=== PATIENT | male | born 1980 | race Caucasian/White ===

== ENCOUNTER 2018-07-04 13:19 | Emergency (ER) | payer SELFPAY ==
[~2018-07-04] VITALS: Ht 185.4 cm; Wt 95.0 kg
[2018-07-04 13:24] VITALS: BP 131/78
[2018-07-04] MEDS ORDERED: METH-360 PO (15:09)
[2018-07-04] MEDS ORDERED: NAPR-56 PO (15:09)
[2018-07-04] MEDS ORDERED: ketorolac tromethamine 15mg/ml inj. IM ONE (15:10)
== END 2018-07-04 15:20 | disposition home or self-care (01) ==
LOC: ER 13:19
DX: I80.8 Phlebitis and thrombophlebitis of other sites (principal); M54.42 Lumbago with sciatica, left side; Z98.890 Other specified postprocedural states; Z79.899 Other long term (current) drug therapy
CPT/HCPCS: 93971; 96372; 99284; J1885

== ENCOUNTER 2019-11-02 21:25 | Emergency (ER) | payer SELFPAY ==
[~2019-11-02] VITALS: Ht 185.4 cm; Wt 93.1 kg
[~2019-11-02 21:25] MED LIST: METH-360 PO
[2019-11-02 21:33] VITALS: BP 113/89
[2019-11-02] MEDS ORDERED: triamcinolone acetonide 40mg/ml inj IM ONE (22:05)
[2019-11-02] MEDS ORDERED: PRED10TA23 PO (22:06)
[2019-11-02] MEDS ORDERED: HYDR28CR14 TOP (22:06)
== END 2019-11-02 22:23 | disposition home or self-care (01) ==
LOC: ER 21:26
DX: L23.7 Allergic contact dermatitis due to plants, except food (principal); R21 Rash and other nonspecific skin eruption; Z98.890 Other specified postprocedural states; Z79.899 Other long term (current) drug therapy
CPT/HCPCS: 96372; 99283; J3301

== ENCOUNTER 2020-06-02 10:06 | Emergency (ER) | payer MEDICAID ==
[~2020-06-02] VITALS: Ht 185.4 cm; Wt 100.0 kg
[~2020-06-02 10:06] MED LIST changes: +HYDR28CR14 TOP
[2020-06-02 10:22] VITALS: BP 132/68
[2020-06-02] MEDS ORDERED: CEPH500C5 PO (13:24)
== END 2020-06-02 13:37 | disposition home or self-care (01) ==
LOC: ER 10:06
DX: L08.9 Local infection of the skin and subcutaneous tissue, unspecified (principal); R59.1 Generalized enlarged lymph nodes; F17.200 Nicotine dependence, unspecified, uncomplicated; F12.90 Cannabis use, unspecified, uncomplicated; Z98.890 Other specified postprocedural states; Z72.89 Other problems related to lifestyle; Z79.2 Long term (current) use of antibiotics; Z79.899 Other long term (current) drug therapy
CPT/HCPCS: 99283

== ENCOUNTER 2022-03-06 09:58 | Emergency (ER) | payer MEDICAID ==
[~2022-03-06] VITALS: Ht 185.4 cm; Wt 86.4 kg
[2022-03-06 10:01] VITALS: BP 112/70
[2022-03-06] MEDS ORDERED: TETanus/Pertussis (Acell)/Diphther VAC/PF (Tdap-Adult) 0.5ml syringe IMVAC ONE (11:00)
[2022-03-06] MEDS ORDERED: LIDOcaine 1% 30ml preserv. free vial IJ ONE (11:00)
[2022-03-06] MEDS ORDERED: morphine 4 MG/ML inj SYRINge IM ONE (12:05)
[2022-03-06] MEDS ORDERED: CEPH500C2 PO ×3 (12:42→13:07)
== END 2022-03-06 13:01 | disposition home or self-care (01) ==
LOC: ER 09:59
DX: S69.92XA Unspecified injury of left wrist, hand and finger(s), initial encounter (principal); F12.90 Cannabis use, unspecified, uncomplicated; X58.XXXA Exposure to other specified factors, initial encounter; Y93.89 Activity, other specified; Y92.89 Other specified places as the place of occurrence of the external cause; Y99.8 Other external cause status
CPT/HCPCS: 73130; 90471; 90715; 96372; 99284; J2270; A6258

== ENCOUNTER 2024-01-04 19:53 | Emergency (ER) | payer MEDICAID ==
[~2024-01-04] VITALS: Ht 185.4 cm; Wt 89.1 kg
[2024-01-04] MEDS: TETanus/Pertussis (Acell)/Diphther VAC/PF (Tdap-Adult) 0.5ml syringe IMVAC ONE (20:22)
[2024-01-04] MEDS: LIDOcaine 1% 30ml preserv. free vial IJ STA (20:43)
[2024-01-04] MEDS ORDERED: CEPH-585 PO (21:44)
[2024-01-04 21:55] VITALS: BP 156/77; PULSE 65; RESP 15; TEMP 98.4; O2SAT 99
== END 2024-01-04 21:56 | disposition home or self-care (01) ==
LOC: ER 19:53
DX: S91.114A Laceration without foreign body of right lesser toe(s) without damage to nail, initial encounter (principal); Z79.899 Other long term (current) drug therapy; Z98.890 Other specified postprocedural states; Z72.89 Other problems related to lifestyle; F12.90 Cannabis use, unspecified, uncomplicated; X58.XXXA Exposure to other specified factors, initial encounter; Y93.89 Activity, other specified; Y92.89 Other specified places as the place of occurrence of the external cause; Y99.8 Other external cause status
CPT/HCPCS: 12001; 99283; J7030; L4360; A6258; A6449

== ENCOUNTER 2024-01-20 15:47 | Emergency (ER) | payer MEDICAID ==
[~2024-01-20] VITALS: Ht 185.4 cm; Wt 87.0 kg
[2024-01-20] MEDS ORDERED: HYDR-3965 PO (16:18)
[2024-01-20] MEDS ORDERED: AMOX-580 PO (16:18)
[2024-01-20 16:37] VITALS: BP 132/80; PULSE 84; RESP 18; TEMP 98.5; O2SAT 99
== END 2024-01-20 16:40 | disposition home or self-care (01) ==
LOC: VAS 15:47
DX: S02.5XXA Fracture of tooth (traumatic), initial encounter for closed fracture (principal); S91.114A Laceration without foreign body of right lesser toe(s) without damage to nail, initial encounter; F12.90 Cannabis use, unspecified, uncomplicated; Z79.2 Long term (current) use of antibiotics; Z79.899 Other long term (current) drug therapy; X58.XXXA Exposure to other specified factors, initial encounter; Y93.89 Activity, other specified; Y99.8 Other external cause status; Y92.89 Other specified places as the place of occurrence of the external cause
CPT/HCPCS: 99283; A6449

== ENCOUNTER 2024-04-11 08:08 | Emergency (ER) | payer MEDICAID ==
[~2024-04-11] VITALS: Ht 185.4 cm; Wt 88.6 kg
[2024-04-11 08:10] VITALS: TEMP 98.7
[2024-04-11] MEDS: amox tr/potassium clavulanate 875/125mg TAB PO ONE (08:39)
[2024-04-11] MEDS: ketorolac trometh 15mg/ml vial 15 MG/ML ML IM ONE (08:39)
[2024-04-11 08:50] VITALS: BP 134/95; PULSE 83; RESP 16; O2SAT 38
== END 2024-04-11 08:52 | disposition home or self-care (01) ==
LOC: ER 08:08
DX: S03.2XXA Dislocation of tooth, initial encounter (principal); K02.9 Dental caries, unspecified; F12.90 Cannabis use, unspecified, uncomplicated; Z79.899 Other long term (current) drug therapy; Z98.890 Other specified postprocedural states; Z72.89 Other problems related to lifestyle; X58.XXXA Exposure to other specified factors, initial encounter; Y93.89 Activity, other specified; Y92.89 Other specified places as the place of occurrence of the external cause; Y99.8 Other external cause status
CPT/HCPCS: 96372; 99283; J1885

== ENCOUNTER 2024-06-10 10:53 | Day surgery (SDC) | payer MEDICAID ==
[~2024-06-10] VITALS: Ht 185.4 cm; Wt 88.6 kg
[2024-06-10] VITALS (7 sets, daily range): BP systolic 76–131; BP diastolic 36–73; PULSE 46–65; RESP 11–20; O2SAT 99–100
[2024-06-10] MEDS ORDERED: propofol inj 20 ML IV ONE (12:30)
[2024-06-10] MEDS ORDERED: fentaNYL/PF 50MCG/1 ML 2ML syringe ONE (12:30)
[2024-06-10] MEDS ORDERED: midazolam 1 mg/ML 2ml injection ONE (12:30)
== END 2024-06-10 13:45 | disposition home or self-care (01) ==
LOC: GI LAB 10:53
PROVIDERS: ATTEND Internal Medicine Gastroenterology
DX: K92.1 Melena (principal); K62.1 Rectal polyp; D12.4 Benign neoplasm of descending colon; Z87.891 Personal history of nicotine dependence
CPT/HCPCS: 45380; 45385; J2250; J2704; J3010; J7030; Z7512; C1889

== ENCOUNTER 2025-04-26 12:31 | Emergency (ER) | payer MEDICAID ==
[~2025-04-26] VITALS: Ht 185.4 cm; Wt 88.0 kg
[2025-04-26 12:32] VITALS: BP 141/92; PULSE 80; RESP 16; TEMP 98.2; O2SAT 99
[2025-04-26] MEDS ORDERED: AMOX-580 PO (13:04)
--- NOTE | 2025-04-26 13:06 | Physician Documentation ---
HPI ~ General Chief Complaint: Tooth Problem Stated Complaint: TOOTH PAIN Time Seen by MD: 12:42 OK to notify your PCP?: Yes Primary Medical Doctor: [facility] Source: patient Mode of Arrival: POV Exam Limitations: no limitations History of Present Illness HPI Comment 44-year-old male who is here with left lower dental pain which he states started two days ago. He had an appointment to get this tooth pulled but he states he cancel that as he had to work and at that time the pain was not like it is now. He is requesting a prescription for antibiotics. Pain kept him awake last night. No fever, chills, sore throat, ear pain, cp. Medication Reconciliation Allergies: Coded Allergies: No Known Allergies (Unverified , 04/26/25) Past Medical History Past Medical History: No Pertinent History, Vascular Disease Past Surgical History: orthopedic surgeries Alcohol Use: Occasionally Drug Use: marijuana Occupation: employed Review of Systems All Other Systems at this time: Reviewed and Negative Physical Exam Vital Signs: Temperature: 98.2, Source: Oral, Heart Rate: 80, Respiratory Rate: 16, BP: 141/92, Pulse Oximetry: 99, Weight: 88.000 Oxygen Flow Rate: 0 Physical Exam General Appearance: Alert, WD/WN. NAD. HEENT: NCAT, PERRL, EOMI. No facial swelling, left back molar avulsion with decay, gingiva on buccal side has significant recession with erythema and ttp, no edema. Neck: Supple, trachea midline. No cervical lymphadenopathy Cardiovascular: RRR. No m/r/g. Lungs: CTAB. Breathing unlabored Extremities: Normal inspection. No edema. Skin: Warm/dry, normal color Neurological: Alert and oriented x4, normal gait. Psychiatric: Affect congruent with mood. Progress Results/Orders Results/Orders Orders - JASPER VELOZ Benzocaine Top Shavonne-Anbesol (Anbesol Topi (04/26/25 12:58) Vital Signs 04/26/25 12:32 Temp 98.2 Pulse 80 Resp 16 B/P (MAP) 141/92 Pulse Ox 99 O2 Flow Rate 0 Medical Decision Making Additional information obtaine: N/A Findings n/a Differential Dx:Considerations: Include: Alveolar fracture, Alveolar osteitis, ANUG, Facial Cellulitis, Periapical abscess, Peridontal abscess, Post-extraction bleeding, Pulpitis, Tooth avulsion, Tooth eruption, Tooth Fracture, Trigeminal neuralgia, Tooth subluxation, Other Departure Time of Disposition: 13:03 Disposition: 01 HOME / SELF CARE / HOMELESS Impression: Primary Impression: Pain, dental Condition: Stable Discharge Instructions: Dental Pain Additional Instructions: I sent a prescription for an antibiotic to your pharmacy Salt water rinses f/u with dentist Referrals: NO PRIMARY CARE PROVIDER (PCP) Prescriptions Amox Tr/Potassium Clavulanate 875/125 MG (Augmentin 875/125 MG) 875 Mg-125 Mg Tablet 1 TAB PO Q12H for 10 Days, #20 TAB Prov: JASPER VELOZ 04/26/25 Education Educated: Patient Educated regarding: diagnosis, treatment, need for follow up Signature Scribe Signature: denzel Attestation: JASPER Rider Apr 26, 2025 13:06
[2025-04-26] MEDS: benzocaine (Anbesol) 12ml bottle MM STA (13:11)
== END 2025-04-26 13:16 | disposition home or self-care (01) ==
LOC: ER 12:31
DX: K08.89 Other specified disorders of teeth and supporting structures (principal); F12.90 Cannabis use, unspecified, uncomplicated; Z72.89 Other problems related to lifestyle; Z98.890 Other specified postprocedural states
CPT/HCPCS: 99283

== ENCOUNTER 2025-05-27 12:12 | Emergency (ER) | payer MEDICAID ==
[~2025-05-27] VITALS: Ht 185.4 cm; Wt 90.4 kg
[2025-05-27 12:33] VITALS: BP 130/83; PULSE 76; O2SAT 99
--- NOTE | 2025-05-27 13:51 | Physician Documentation ---
History of Present Illness ~ Chief Complaint: Back Pain Stated Complaint: BACK PAIN Time Seen by MD: 13:37 Primary Medical Doctor: BALJIT HPI 44 year old male presents to the emergency department for complaints of lower back pain that has been present for three days. Patient states that he had thrown his back out three days ago. He states that his pain is in his lower back and it worsened after clipping toenails yesterday. He states he had bent over and felt a sharp pain and is now unable to move his back. Patient states that he has a history of back pain and has thrown it out before. Medication Reconciliation Allergies: Coded Allergies: No Known Allergies (Unverified , 05/27/25) Scheduled Cyclobenzaprine HCl (Cyclobenzaprine HCl), 1 TAB PO HS Naproxen (Naproxen), 1 TAB PO Q12H Past Medical History Past Medical History: No Pertinent History, Vascular Disease Past Surgical History: orthopedic surgeries Alcohol Use: Occasionally Drug Use: marijuana Occupation: employed Review of Systems All Other Systems at this time: Reviewed and Negative ROS Patient was asked, but denied any other symptoms. All other systems are negative other than those mentioned above. Physical Exam Physical Exam Vital Signs: RN Vital Signs have been reviewed: Yes, Temperature: 97.4, Source: Temporal, Heart Rate: 76, Respiratory Rate: 18, BP: 130/83, Pulse Oximetry: 99, Weight: 90.400 Oxygen Flow Rate: 0 Pulse Oximetry Reflects: adequate oxygenation Physical Exam General: Alert, no apparent distress. HEENT: PERRL, EOMI, no injection, moist mucous membranes. Neck: Full range of motion. Respiratory: Lungs clear, no respiratory distress. Chest: No accessory muscle use. Cardiovascular: Regular rate and rhythm, no murmurs. Gastrointestinal: Soft, nontender, nondistended. Bowels sounds present. Extremities: Normal range of motion, no deformity. Neurologic: Oriented x4. Psychiatric: Normal mood and affect. Skin: Normal color, warm and dry. No edema, no ecchymosis. Back: Tenderness to touch with deep palpation to lumbar region. Progress Results/Orders Results/Orders Completed Orders - CRISTINO TOMPKINS NP Hydrocodone/Apap 10/325 ([place] 10/325mg (05/27/25 14:00) Diazepam Tablet (Valium Tablet) (05/27/25 14:00) Ketorolac Trometh 30mg/Ml Vial (Toradol (05/27/25 14:00) Medications Received in ER Medications (Trade) Dose Ordered Sig/Tammy Route PRN Reason Start Time Stop Time Status Last Admin Dose Admin ([place] 10/325mg tab) 1 tab ONCE ONCE PO 05/27/25 14:00 05/27/25 14:01 DC 05/27/25 14:07 1 TAB (Valium tablet) 5 mg ONCE ONCE PO 05/27/25 14:00 05/27/25 14:01 DC 05/27/25 14:06 5 MG (Toradol inj. 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 Says it is not the 1st time he has had these symptoms. I educated him on the need for physical therapy and core strength.sent him home with medications to help alleviate his symptoms Differential Dx:Considerations: Musculoskeletal pain Departure Time of Disposition: 13:58 Disposition: 01 HOME / SELF CARE / HOMELESS Impression: Primary Impression: Lumbar strain Condition: Stable Discharge Instructions: Chronic Back Pain Referrals: NO PRIMARY CARE PROVIDER (PCP) Prescriptions Cyclobenzaprine HCl (Cyclobenzaprine HCl) 10 Mg Tablet 1 TAB PO HS for muscle spasms for 30 Days, #30 TAB Prov: CRISTINO TOMPKINS HEAD HOST/HOSTESS 05/27/25 Naproxen (Naproxen) 500 Mg Tablet 1 TAB PO Q12H, #20 TAB Prov: CRISTINO TOMPKINS HEAD HOST/HOSTESS 05/27/25 Education Educated: Patient Educated regarding: diagnosis, treatment, prognosis, need for follow up Signature Scribe Signature: Scribed for Cristino Tompkins Health Safety And Environment Manager by Anthony Martinez . 05/27/25 13:59 Attestation: Scribed for Cristino Tompkins Np by Cristino Dial NP . 05/27/25 14:04 CRISTINO TOMPKINS NP May 27, 2025 13:51 ANTHONY LARA May 27, 2025 13:59
[2025-05-27] MEDS ORDERED: CYCL-394 PO (14:04)
[2025-05-27] MEDS ORDERED: NAPR-56 PO (14:04)
[2025-05-27] MEDS: HYDROcodone/acetaminophen 10/325mg tab PO ONE (14:07)
[2025-05-27 14:09] VITALS: RESP 8
[2025-05-27] MEDS: ketorolac trometh 30MG/ML vial 30 MG/ML VIAL IM ONE (14:09)
[2025-05-27 14:16] VITALS: TEMP 97.4
== END 2025-05-27 14:17 | disposition home or self-care (01) ==
LOC: ER 12:12
DX: S39.012A Strain of muscle, fascia and tendon of lower back, initial encounter (principal); F12.90 Cannabis use, unspecified, uncomplicated; Z79.899 Other long term (current) drug therapy; Z72.89 Other problems related to lifestyle; Z98.890 Other specified postprocedural states; X58.XXXA Exposure to other specified factors, initial encounter; Y93.89 Activity, other specified; Y92.89 Other specified places as the place of occurrence of the external cause; Y99.8 Other external cause status
CPT/HCPCS: 96372; 99283; J1885